=== PATIENT | female | born 1975 | race Caucasian/White ===

== ENCOUNTER → 2016-07-09 | Outpatient (CLI) | payer OTHER ==
[~2016-07-09] MED LIST: ACET-1256 PO; DOCU-94 PO; FERR18TA2 PO; MTR600X PO; OXYC1TAB3 PO; PRENTAB26 PO
== END | disposition home or self-care (01) ==
LOC: C.LABSPEC 14:36
PROVIDERS: ATTEND Obstetrics & Gynecology
DX: O09.513 Supervision of elderly primigravida, third trimester (principal)

== ENCOUNTER 2016-07-31 07:18 | Inpatient (IN) | payer OTHER ==
[~2016-07-31] VITALS: Ht 162.6 cm; Wt 79.5 kg
[2016-07-31] VITALS (14 sets, daily range): BP systolic 108–123; BP diastolic 69–78; PULSE 70–75; TEMP 36.5–37; O2SAT 95–98; Ht 162.6 cm; Wt 79.5 kg
[~2016-07-31 07:18] MED LIST changes: -MTR600X PO
[2016-07-31] MEDS ORDERED: LACTATED RINGER'S 1000ML 1,000 ML IV ONE (07:43)
[2016-07-31] MEDS ORDERED: CITRIC ACID/SODIUM CITRATE 15 ML UDC PO ONE (07:45)
[2016-07-31] MEDS ORDERED: CEFAZOLIN IV 2,000 MG in DEXTROSE 5% 50ML 50 ML IV SCH (08:00)
[2016-07-31] MEDS ORDERED: MoRPHine SULFATE PF 1 MG/ML 10 ML AMP/VIAL ONE (08:19)
[2016-07-31] MEDS ORDERED: ONDANSETRON INJ 2 MG/ML 2 ML VIAL IV PRN ×2 (08:30→08:45)
[2016-07-31] MEDS ORDERED: MEPERIDINE HCL 25 MG/ML CARP IV PRN ×2 (08:30→08:45)
[2016-07-31] MEDS ORDERED: KETOROLAC TROMETHAMINE 30 MG/ML VIAL IV. PRN ×2 (08:30→08:45)
[2016-07-31] MEDS ORDERED: MoRPHine SULFATE PF 1 MG/ML 10 ML AMP/VIAL EPI PRN (08:30)
[2016-07-31] MEDS ORDERED: NALOXONE HCL 0.4 MG/1 ML VIAL/CARP IV PRN (08:30)
[2016-07-31] MEDS ORDERED: NALOXONE HCL INJ 1 MG in SODIUM CHLORIDE 0.9% 1000ML 1,000 ML IV PRN ×4 (08:30)
[2016-07-31] MEDS ORDERED: SODIUM CHLORIDE 0.9% 1000ML 1,000 ML IV PRN (08:30)
[2016-07-31] MEDS ORDERED: LACTATED RINGER'S 1000ML 500 ML IV PRN (08:30)
[2016-07-31] MEDS ORDERED: NALBUPHINE HCL INJ 10 MG/ML AMP IV PRN (08:30)
[2016-07-31] MEDS ORDERED: DiphenhydrAMINE HCL 50 MG/ML VIAL IV PRN (08:30)
[2016-07-31] MEDS ORDERED: EpHEDrine SULFATE INJ 50 MG/ML AMP IV PRN ×2 (08:30→08:45)
[2016-07-31] MEDS ORDERED: PROMETHAZINE HCL INJ 25 MG in SODIUM CHLORIDE 0.9% 50ML 50 ML IV PRN (08:30)
[2016-07-31] MEDS ORDERED: NALOXONE HCL INJ 0.08 MG in SYRINGE 1.8 ML IV PRN (08:30)
[2016-07-31] MEDS ORDERED: NO NARCOTICS OR SEDATIVES SCH (08:30)
[2016-07-31 08:39] LABS: BASO % 0.2 %; BASO ABS # 0.02 K/uL (0-0.2); COMPLETE YES; EOS % 0.4 %; HEMATOCRIT 33.7 % (37-47); IG% 0.2 %; LYMPH % 17.7 %; LYMPH ABS # 1.83 K/uL (1.2-3.4); MEAN CELL VOLUME 87.8 fL (80-100); MEAN CORPUSCULAR HEMOGLOBIN 31.5 pg (25-34); MEAN CORPUSCULAR HGB CONC 35.9 g/dl (32-36); MEAN PLATELET VOLUME 12.2 fL (7.4-10.4); MONO % 7.2 %; NEUT % 74.3 %; PLATELET COUNT 192 K/uL (130-400); RED BLOOD COUNT 3.84 M/uL (4.2-5.4); WHITE BLOOD COUNT 10.32 K/uL (4.8-10.8)
[2016-07-31] MEDS ORDERED: ATROPINE SULFATE 0.1 MG/ML 5ML SYR IV PRN (08:45)
[2016-07-31] MEDS ORDERED: PHENYLEPHRINE 100MCG/ML 5ML SYR IV PRN (08:45)
--- NOTE | 2016-07-31 08:57 | HISTORY & PHYSICAL EXAMINATION ---
DATE OF ADMISSION: 07/31/2016 ADMIT DIAGNOSIS: 1. Intrauterine at 39 and 4/7 weeks. 2. Spontaneous rupture of membranes. 3. Desire for elective primary section. HISTORY OF PRESENT ILLNESS: The patient is a 41-year-old white female 2, para 0-0-1-0 with an EDC of 08/03/2016. She was scheduled for primary elective section this coming Friday. She noted a gush of fluid at approximately 6:30 this morning that soaked her underwear, it was clear. She notes some cramping, but no vaginal bleeding. Notes good movement. is complicated by advanced maternal age with a normal echo, occasional PACs noted on this. heart rate remained normal. She had a maternal T21 which was negative. A maternal serum protein which was negative. Her has essentially been uncomplicated. 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 She denies abnormal Pap smears or sexually transmitted diseases. ALLERGIES: VAPORIZING CHEST RUB OINTMENT. MEDICATIONS: vitamin, Albuterol inhaler as needed, Colace and iron. PAST MEDICAL HISTORY: Significant for migraines, asthma and chickenpox. She denies thyroid disease, heart disease, heart murmur, diabetes, kidney or liver problems. PAST SURGICAL HISTORY: Includes wisdom teeth removal and a broken fifth toe. SOCIAL HISTORY: The patient lives with her spouse. She denies tobacco, alcohol or drug use. PHYSICAL EXAMINATION: GENERAL: This is a well-developed, well-nourished white female in no acute distress, sitting comfortably in the bed. NECK: Supple. CHEST: Clear to auscultation bilaterally. CARDIOVASCULAR: Regular rate and rhythm without murmurs, gallops or rubs. BACK: Without costovertebral angle tenderness. ABDOMEN: Gravid, soft and nontender. EXTREMITIES: Benign. Sterile speculum exam reveals positive pooling, ferning Nitrazine. Cervix is visually closed and long. Tocodynamometer shows some mild intermittent contractions. The fetus is in the 130s with moderate variability, no accels or decels. LABORATORY DATA: Blood type A positive, antibody negative, Pap normal, rubella immune, RPR nonreactive, hepatitis B negative, HIV negative, chlamydia and gonorrhea negative, cystic fibrosis screening negative. Glucose tolerance test x2 normal. Group B strep negative. ASSESSMENT: Tia is a 41-year-old white female 2, para 0-0-1-0 with an intrauterine at 39 and 4/7 weeks who was scheduled for primary elective section on Friday, but now presents to labor and delivery with spontaneous rupture of membranes confirmed via sterile speculum exam. The patient continues to desire primary section. She has been counseled extensively in the office and this is her desire. The risks of the surgery were discussed with the patient including risks of anesthesia, bleeding requiring transfusion, infection, poor wound healing, damage to surrounding structures including bowel, bladder, vessels, nerves and ureters with need for further surgery, hospitalization or intervention. We discussed the other risks of surgery including heart attack, blood clot, stroke or . Consent was reviewed and signed and we will proceed with surgery. MAIA
[2016-07-31] MEDS ORDERED: METOCLOPRAMIDE HCL INJ 5 MG/ML 2 ML VIAL ONE (09:27)
[2016-07-31] MEDS ORDERED: PROPOFOL IV EMULSION 10 MG/ML 20 ML VIAL IV ONE (09:27)
[2016-07-31] MEDS ORDERED: OXYTOCIN INJ 10 UNITS/ML VIAL ONE (09:27)
[2016-07-31] MEDS ORDERED: ONDANSETRON INJ 2 MG/ML 2 ML VIAL ONE (09:27)
[2016-07-31] MEDS ORDERED: EpHEDrine SULFATE 50MG/5ML SYR ONE (09:28)
[2016-07-31] MEDS ORDERED: PHENYLEPHRINE 100MCG/ML 5ML SYR ONE (09:28)
[2016-07-31] MEDS ORDERED: LACTATED RINGER'S 1000ML 1,000 ML IV SCH (09:52)
[2016-07-31] MEDS ORDERED: HYDROCORTISONE ACETATE 25 MG SUPP PR PRN (10:00)
[2016-07-31] MEDS ORDERED: SUPERCREAM 0.870 % 15GM JAR EXT PRN (10:00)
[2016-07-31] MEDS ORDERED: LANOLIN OINT EXT PRN ×2 (10:00)
[2016-07-31] MEDS ORDERED: DIPHTHERIA/TETANUS/PERTUSSIS 0.5 ML SYR/VIAL IM. ONE (10:00)
--- NOTE | 2016-07-31 10:14 | [facility] Post Operative Brief Note ---
Immediate Operative Summary Operative Date Jul 31, 2016. Pre-Operative Diagnosis Term at 39 & 4 weeks with spontaneous rupture of membranes and desire for elective Caesarean section Post-Operative Diagnosis done with delivery of healthy male Procedure(s) Performed Primary Low Transverse Caesarean Section Surgeon Dr. Tatyana Isaac Cafe Assistant Surgeon(s) Dionne Barfield RN Estimated Blood Loss 500 Findings Delivered a viable male infant, APGARS 9,9. Weight 6#11ounces. Normal uterus, fallopian tubes and ovaries bilaterally Fluids (cc crystalloids) 3100 IVF Specimens a. placenta- hold b. cord blood specimen Drains Fatima catheter in place 350 UO Anesthesia Spinal w/duramorph Complication(s) None
--- NOTE | 2016-07-31 11:13 | Medical Student: [facility] ---
Immediate Operative Summary Operative Date Jul 31, 2016. Pre-Operative Diagnosis Term at 39 weeks 4 days with SROM and primary elective C/S Post-Operative Diagnosis Primary elective C/S w/ delivery of health male infant Procedure(s) Performed Primary low transverse C/S Surgeon Dr. Tatyana Isaac Home Teaching Gr[employer] 7 [employer] 8 Teacher Surgeon(s) Dionne Barfield RN Estimated Blood Loss 500 mL Findings Viable male infant, apgars 9/9, weight 6 lbs 11 oz Normal uterus, fallopian tubes, and ovaries bilaterally Fluids (cc crystalloids) 3100 mL IVF Specimens Placenta - hold Cord blood specimen Drains Fatima catheter in place - 350 UO Anesthesia spinal with morphine Complication(s) None Disposition L&D
--- NOTE | 2016-07-31 11:15 | Medical Student: [facility] ---
Med Student History & Physical Date of Service Jul 31, 2016. Chief Complaint R/O Rupture Of Membranes History of Present Illness Source: patient Patient is a 41 year old , 39 weeks 4 days GA, LINSEY 08/03/16 by LMP 10/28/15 , here for possible rupture of membranes. She experienced a gush of clear fluid around 0630 on 07/31/16 with some mild cramping. There is no bleeding and she continues to feel movements. There was pooling of fluid on sterile speculum exam and ferning was positive. She desires a primary elective C/S and was actually scheduled for a primary elective C/S this Friday08/02/16. Her course is significant for premature contractions at 32 weeks and advanced maternal age. A echo was performed on 03/26/16 for family history of a bicuspid aortic valve in the grandmother. echo showed PACs. All NSTs thus far have been reactive and fibronectin was negative on 06/07/16. The patient's past medical history is significant for hyperlipidemia and asthma. Her gynecologic history is insignificant. There is no history of abnormal pap smears or sexually transmitted diseases. Obstetrical history is significant for a spontaneous in 2015. Surgical history is significant for wisdom teeth extraction. Patient is blood type A +, rubella immune, VDRL/RPR nonreactive, negative HbsAg & HIV, negative G & C, negative GBS culture, negative Materni 21 and negative AFP. OB History Obstetrical history is significant for a spontaneous in 2015. 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 Periods last about 4-5 days. No excessive bleeding or cramping with periods. No history of abnormal pap smears or sexually transmitted disease. Past Medical History Past medical history is significant for hyperlipidemia and asthma. Patient has Ventolin at home, but has not used it in over a year. Past Surgical History Past surgical history is significant for wisdom teeth extraction. 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 ) Allergies Coded Allergies: Camphor (Unverified Adverse Reaction, Unknown, SHORTNESS OF BREATH, ) Eucalyptus Oil (Unverified Adverse Reaction, Unknown, SHORTNESS OF BREATH , 06/07/16) Menthol (Unverified Adverse Reaction, Unknown, SHORTNESS OF BREATH, ) Home Medications Acetaminophen (Tylenol), 500 MG PO DAILY PRN for Pain Docusate Sodium (Colace), 1 CAP PO DAILY Ferrous Fumarate (Iron), Unknown Dose PO 2XWK Multivit/Min/Iron/Fol Ac/Pren ( Vitamin), 1 TAB PO DAILY Oxycodone Immediate Rel Tab (Roxicodone Ir), 1-2 TAB PO Q4H PRN for Severe Pain Review of Systems Constitutional: No chills, No fever Eyes: No worsening of vision Respiratory: No cough, No shortness of breath Cardiovascular: No chest pain, No palpitations Abdomen: No constipation, No diarrhea, No nausea, No pain, No vomiting Genitourinary - Female: No dysuria Integumentary: No itch, No rash Physical Exam General Appearance: WD/WN, no apparent distress Respiratory/Chest: lungs clear, normal breath sounds Cardiovascular: regular rate, rhythm, no JVD, no murmur Abdomen / GI: non tender, soft, + pertinent finding (gravid ) Extremities: normal inspection Skin: normal color, warm/dry Sterile Speculum Exam: pooling of fluid Microscopy of vaginal fluid: positive for arborization/ferning Laboratory Results 07/31/16 08:30 Red Blood Count 3.84, Mean Corpuscular Volume 87.8, Mean Corpuscular Hemoglobin 31.5, Mean Corpuscular Hemoglobin Concent 35.9, Mean Platelet Volume 12.2, Neutrophils (%) (Auto) 74.3, Lymphocytes (%) (Auto) 17.7, Monocytes (%) (Auto) 7.2, Eosinophils (%) (Auto) 0.4, Basophils (%) (Auto) 0.2, Neutrophils # (Auto) 7.67, Lymphocytes # (Auto) 1.83, Monocytes # (Auto) 0.74, Eosinophils # (Auto) 0.04, Basophils # (Auto) 0.02 Test 07/31/16 08:30 White Blood Count 10.32 K/uL (4.8-10.8) Red Blood Count 3.84 M/uL (4.2-5.4) Hemoglobin 12.1 g/dL (12.0-16.0) Hematocrit 33.7 % (37-47) Mean Corpuscular Volume 87.8 fL (80-100) Mean Corpuscular Hemoglobin 31.5 pg (25-34) Mean Corpuscular Hemoglobin Concent 35.9 g/dl (32-36) Platelet Count 192 K/uL (130-400) Mean Platelet Volume 12.2 fL (7.4-10.4) Neutrophils (%) (Auto) 74.3 % Lymphocytes (%) (Auto) 17.7 % Monocytes (%) (Auto) 7.2 % Eosinophils (%) (Auto) 0.4 % Basophils (%) (Auto) 0.2 % Neutrophils # (Auto) 7.67 K/uL (1.4-6.5) Lymphocytes # (Auto) 1.83 K/uL (1.2-3.4) Monocytes # (Auto) 0.74 K/uL (0.11-0.59) Eosinophils # (Auto) 0.04 K/uL (0-0.5) Basophils # (Auto) 0.02 K/uL (0-0.2) RDW Standard Deviation 46.2 fL (36.4-46.3) RDW Coefficient of Variation 14.3 % (11.5-14.5) Immature Granulocyte % (Auto) 0.2 % Immature Granulocyte # (Auto) 0.02 K/uL (0.00-0.02) Assessment and Plan Patient is a 41 year old, , 39 weeks 4 days GA, LINSEY 08/03/16 by LMP , here for possible rupture of membranes. Pooling on sterile speculum exam and positive ferning are suggestive of amniotic fluid and thus indicate rupture of membranes. Plan is to proceed with primary elective C/S.
--- NOTE | 2016-07-31 11:16 | OPERATIVE REPORT ---
DATE OF OPERATION: 07/31/2016 PREOPERATIVE DIAGNOSES: 1. Term intrauterine . 2. Spontaneous rupture of membranes. 3. Desires elective section. POSTOPERATIVE DIAGNOSIS: Same. PROCEDURE: 1. Primary low transverse section. SURGEON: Dr. Tatyana Isaac. EXPERIMENTAL FLIGHT TEST MECHANIC: Jewels, PGY-1. ANESTHESIA: Spinal with Duramorph. IV FLUIDS: 3100 mL. ESTIMATED BLOOD LOSS: 500 mL. URINE OUTPUT: 350 mL. FINDINGS: Viable male , Apgars 9 and 9. Normal uterus, tubes and ovaries bilaterally. INDICATIONS: A 41-year-old 1, para 0 at 39+ weeks who came in to labor and delivery with confirmed spontaneous rupture of membranes. The patient declined attempted vaginal delivery. She desired . She is aware of risks, alternatives and complications and the consent form was signed. PROCEDURE: The patient was taken to the operating room and identified. After adequate spinal anesthesia was obtained, she was placed on the operating table in the supine position with a leftward tilt and prepped and draped in the usual sterile fashion. The knife was used to create a Pfannenstiel skin incision that was carried down to underlying layer of fascia. The fascia was nicked in the midline and this opening was extended laterally using Lo scissors. Uli clamps were placed in the superior and inferior aspects of the fascial incision tenting it upwards and the underlying rectus muscles were dissected off the overlying fascia both sharply and bluntly using Lo scissors. The rectus muscles were bluntly in the midline. The peritoneal cavity was bluntly entered into. This opening was stretched. The bladder blade was placed. The vesicouterine peritoneum was grasped with a Theresa clamp and elevated. It was opened up into sharply and extended bluntly and the bladder flap was created digitally. The bladder blade was replaced. Knife was used to create a hysterotomy that was then stretched. The operators hand was placed through the hysterotomy and the head was elevated. The bladder blade was removed. With fundal pressure, the head was flexed and delivered. The shoulders and body were delivered with ease. The was vigorous and crying at . Per the patient's desire, the cord was clamped after it stopped pulsating. This is within less than 1 minute. The 's cord was doubly clamped and cut and the was handed off to the awaiting pediatricians. Cord blood was obtained. The placenta was manually expressed. The uterus was exteriorized and cleared of all clots and debris. The hysterotomy was closed in a running interlocking fashion using 0 Vicryl followed by a second imbricating layer of 0 Vicryl. Two bleeding site in the midline were stitched with interrupted [id number] sutures of 2-0 Vicryl for excellent hemostasis. The pelvis was irrigated. The uterus was returned to the abdomen. The gutters were cleared of all clots and debris. The hysterotomy was reinspected and noted to be hemostatic. The fascia was closed in a running fashion using 0 Vicryl. Subcutaneous fat was reapproximated using 2-0 chromic. The skin was then closed in a subcuticular fashion using 4-0 Vicryl. All sponge, lap and counts were correct x2. The patient was returned to the recovery room in stable condition. I attest to the content of the Intraoperative Record and any orders documented therein. Any exceptions are noted below. MAIA
--- NOTE | 2016-07-31 12:41 | Anesthesiology Progress Note ---
Anesthesia Post Op Note Date & Time Jul 31, 2016 at 12:41 Notes Mental Status: alert / awake / arousable, participated in evaluation Pt Amnestic to Procedure: Yes Nausea / Vomiting: adequately controlled Pain: adequately controlled Airway Patency, RR, SpO2: stable & adequate BP & HR: stable & adequate Hydration State: stable & adequate Anesthetic Complications: no major complications apparent
[2016-07-31] MEDS: OXYTOCIN INJ 20 UNITS in LACTATED RINGER'S 1000ML 1,000 ML IV SCH ×2 (13:44→19:37)
[2016-07-31] MEDS: SIMETHICONE 80 MG CHEW PO SCH ×2 (17:00→19:36)
[2016-07-31] MEDS: DOCUSATE SODIUM 100 MG CAP PO SCH (19:36)
[2016-08-01] VITALS: O2SAT 95
[2016-08-01 01:00] VITALS: O2SAT 96
[2016-08-01 02:00] VITALS: O2SAT 96
[2016-08-01] MEDS ORDERED: DC INTRASPINAL MORPHINE ONE (02:00)
[2016-08-01] MEDS ORDERED: ZOLPIDEM TARTRATE 5 MG TAB PO PRN (02:01)
[2016-08-01] MEDS ORDERED: OXYCODONE/ACETAMINOPHEN 5-325 TAB PO PRN (02:01)
[2016-08-01] MEDS ORDERED: DiphenhydrAMINE HCL 50 MG/ML VIAL IV PRN (02:01)
[2016-08-01] MEDS ORDERED: KETOROLAC TROMETHAMINE 30 MG/ML VIAL IV. PRN (02:01)
[2016-08-01] MEDS ORDERED: ONDANSETRON INJ 2 MG/ML 2 ML VIAL IV PRN (02:01)
[2016-08-01 03:55] VITALS: BP 108/71; PULSE 66; TEMP 36.9
[2016-08-01 06:58] LABS: BASO % 0.2 %; BASO ABS # 0.02 K/uL (0-0.2); COMPLETE YES; EOS % 0.2 %; HEMATOCRIT 28.9 % (37-47); IG% 0.2 %; LYMPH % 11.9 %; LYMPH ABS # 1.44 K/uL (1.2-3.4); MEAN CELL VOLUME 87.6 fL (80-100); MEAN CORPUSCULAR HEMOGLOBIN 31.2 pg (25-34); MEAN CORPUSCULAR HGB CONC 35.6 g/dl (32-36); MEAN PLATELET VOLUME 10.9 fL (7.4-10.4); MONO % 6.5 %; PLATELET COUNT 154 K/uL (130-400); WHITE BLOOD COUNT 12.15 K/uL (4.8-10.8)
--- NOTE | 2016-08-01 07:03 | Progress Note ---
Subjective Aug 01, 2016. Subjective conversation w/ patient, physical exam Ambulation: ambulating normally Passing Gas: Yes Diet Tolerance: Clear Liquids Lochia: Small Feeding Type: Breast Feeding Pain: denies pain issues Comment: madrigal just out, awaiting void. Objective Vital Signs Date Time Temp Pulse Resp B/P Pulse Ox O2 Delivery O2 Flow Rate FiO2 08/01/16 03:55 36.9 66 20 108/71 Room Air 08/01/16 02:00 20 96 08/01/16 01:00 18 96 08/01/16 00:00 18 95 07/31/16 23:55 37.0 75 18 108/69 95 Room Air 07/31/16 23:55 95 Room Air 07/31/16 23:00 18 95 07/31/16 22:25 18 95 07/31/16 21:25 16 97 07/31/16 20:25 18 97 07/31/16 19:35 36.7 71 18 123/78 95 Room Air 07/31/16 19:25 18 97 07/31/16 18:25 20 96 07/31/16 17:25 18 96 07/31/16 16:25 18 97 07/31/16 15:25 97 Room Air 07/31/16 15:25 36.5 71 18 123/74 97 Room Air 07/31/16 15:25 18 97 07/31/16 14:20 16 96 07/31/16 14:17 36.5 70 16 115/70 96 Room Air 07/31/16 13:20 18 97 07/31/16 13:20 98 Room Air 07/31/16 13:20 36.7 73 18 120/72 97 Room Air Physical Exam General Appearance: WELL-APPEARING, WD/WN, NO APPARENT DISTRESS Respiratory/Chest: lungs clear Cardiovascular: regular rate, rhythm Abdomen: non tender, soft Fundus: Firm, Relation to Umbilicus (1 down) Incision Description: Clean, Dry & Intact Extremities: non-tender, no pedal edema Laboratory Results Last 24 Hours Test 07/31/16 08:30 08/01/16 06:42 White Blood Count 10.32 K/uL 12.15 K/uL Red Blood Count 3.84 M/uL 3.30 M/uL Hemoglobin 12.1 g/dL 10.3 g/dL Hematocrit 33.7 % 28.9 % Mean Corpuscular Volume 87.8 fL 87.6 fL Mean Corpuscular Hemoglobin 31.5 pg 31.2 pg Mean Corpuscular Hemoglobin Concent 35.9 g/dl 35.6 g/dl Platelet Count 192 K/uL 154 K/uL Mean Platelet Volume 12.2 fL 10.9 fL Neutrophils (%) (Auto) 74.3 % 81.0 % Lymphocytes (%) (Auto) 17.7 % 11.9 % Monocytes (%) (Auto) 7.2 % 6.5 % Eosinophils (%) (Auto) 0.4 % 0.2 % Basophils (%) (Auto) 0.2 % 0.2 % Neutrophils # (Auto) 7.67 K/uL 9.84 K/uL Lymphocytes # (Auto) 1.83 K/uL 1.44 K/uL Monocytes # (Auto) 0.74 K/uL 0.79 K/uL Eosinophils # (Auto) 0.04 K/uL 0.03 K/uL Basophils # (Auto) 0.02 K/uL 0.02 K/uL RDW Standard Deviation 46.2 fL 45.9 fL RDW Coefficient of Variation 14.3 % 14.4 % Immature Granulocyte % (Auto) 0.2 % 0.2 % Immature Granulocyte # (Auto) 0.02 K/uL 0.03 K/uL Assessment and Plan Problem List Medical Problems: (1) Left flank pain Status: Acute (2) Status: Acute Post-Op Day#: 1 Continue Routine Care: stable, routine care. adv diet, await spont void. ambulate in halls. h/h noted. plan recheck in am. breast feeding encouraged.po pain meds.
--- NOTE | 2016-08-01 07:07 | Medical Student: [facility] ---
Med Student [employer] SYSTEM[employer] ENGINE[employer] Progress Nt Date of Service Aug 01, 2016. Subjective conversation w/ patient Ambulation: limited ambulation (bedrest ) Voiding: no voiding problems Passing Gas: Yes Diet Tolerance: Clear Liquids Lochia: Moderate (rubra) Feeding Type: Breast Feeding Pain: over incision Review of Systems Constitutional: No chills, No fever Respiratory: No cough, No shortness of breath Cardiac: No chest pain, No palpitations Abdomen: + constipation, + pain, No diarrhea, No nausea, No vomiting Female : No dysuria Objective Vital Signs Date Time Temp Pulse Resp B/P Pulse Ox O2 Delivery O2 Flow Rate FiO2 08/01/16 03:55 36.9 66 20 108/71 Room Air 08/01/16 02:00 20 96 08/01/16 01:00 18 96 08/01/16 00:00 18 95 07/31/16 23:55 37.0 75 18 108/69 95 Room Air 07/31/16 23:55 95 Room Air 07/31/16 23:00 18 95 07/31/16 22:25 18 95 07/31/16 21:25 16 97 07/31/16 20:25 18 97 07/31/16 19:35 36.7 71 18 123/78 95 Room Air 07/31/16 19:25 18 97 07/31/16 18:25 20 96 07/31/16 17:25 18 96 07/31/16 16:25 18 97 07/31/16 15:25 97 Room Air 07/31/16 15:25 36.5 71 18 123/74 97 Room Air 07/31/16 15:25 18 97 07/31/16 14:20 16 96 07/31/16 14:17 36.5 70 16 115/70 96 Room Air 07/31/16 13:20 18 97 07/31/16 13:20 98 Room Air 07/31/16 13:20 36.7 73 18 120/72 97 Room Air Physical Exam General Appearance: WELL-APPEARING, NO APPARENT DISTRESS Respiratory/Chest: lungs clear, normal breath sounds Cardiovascular: regular rate, rhythm, no gallop, no murmur Abdomen: normal bowel sounds Fundus: Firm, Tender, Relation to Umbilicus (at umbilicus ) Incision Description: Clean, Dry & Intact Extremities: non-tender, no pedal edema, + pertinent finding (SCDs in place bilterally ) Laboratory Results Last 24 Hours Test 07/31/16 08:30 08/01/16 06:00 White Blood Count 10.32 K/uL Red Blood Count 3.84 M/uL Hemoglobin 12.1 g/dL Hematocrit 33.7 % Mean Corpuscular Volume 87.8 fL Mean Corpuscular Hemoglobin 31.5 pg Mean Corpuscular Hemoglobin Concent 35.9 g/dl Platelet Count 192 K/uL Mean Platelet Volume 12.2 fL Neutrophils (%) (Auto) 74.3 % Lymphocytes (%) (Auto) 17.7 % Monocytes (%) (Auto) 7.2 % Eosinophils (%) (Auto) 0.4 % Basophils (%) (Auto) 0.2 % Neutrophils # (Auto) 7.67 K/uL Lymphocytes # (Auto) 1.83 K/uL Monocytes # (Auto) 0.74 K/uL Eosinophils # (Auto) 0.04 K/uL Basophils # (Auto) 0.02 K/uL RDW Standard Deviation 46.2 fL RDW Coefficient of Variation 14.3 % Immature Granulocyte % (Auto) 0.2 % Immature Granulocyte # (Auto) 0.02 K/uL Medications Medications Administered Medications (Trade) Dose Ordered Sig/Alexia Route Start Time Stop Time Status Last Admin Dose Admin Lactated Ringer's (Lr 1000ml) 1,000 ml @ 1,000 mls/hr Q1H ONCE IV 07/31/16 07:43 07/31/16 08:42 DC 07/31/16 08:14 1,000 MLS/HR Citric Acid/ Sodium Citrate 30 ml 30 ml 0745 ONCE PO 07/31/16 07:45 07/31/16 07:50 DC 07/31/16 08:42 30 ML Cefazolin Sodium/ Dextrose (Ancef Iv/D5 50ml) 60 ml @ 100 mls/hr PREOP IV 07/31/16 08:00 07/31/16 08:35 DC 07/31/16 08:44 100 MLS/HR Ketorolac Tromethamine (Toradol Inj) 30 mg Q6H PRN IV. 07/31/16 08:30 08/01/16 02:00 DC 08/01/16 01:36 30 MG Miscellaneous Information 1 ea 1 ea 0200 ONCE N/A 08/01/16 02:00 08/01/16 02:01 DC 08/01/16 02:00 1 EA Oxytocin/Lactated Ringer's (Pitocin Inj/Lr 1000ml) 1,002 ml @ 125 mls/hr Q8H1M IV 07/31/16 09:52 08/30/16 09:51 07/31/16 19:37 125 MLS/HR Docusate Sodium (coLACE CAP) 100 mg BID PO 07/31/16 20:00 08/30/16 19:59 07/31/16 19:36 100 MG Simethicone (Mylicon Chew Tab) 80 mg QID PO 07/31/16 13:00 08/30/16 12:59 07/31/16 19:36 80 MG Assessment and Plan Post- Day Number: 1 Continue Routine Care: The patient is a 41 year old , PP day 1, s/p primary low transverse C/S with no complications. Plan is to continue routine care today. -vitals stable and WNL -blood type A +, rubella immune -doing well clinically -encourage ambulation and liquids -start PO diet -pain well controlled with IV Toradol 30 mg last night -continue routine care
[2016-08-01 08:10] VITALS: BP 104/58; PULSE 62; TEMP 36.8
[2016-08-01] MEDS: SIMETHICONE 80 MG CHEW PO SCH ×4 (08:17→20:27)
[2016-08-01] MEDS: DOCUSATE SODIUM 100 MG CAP PO SCH ×2 (08:17→20:27)
[2016-08-01] MEDS: IBUPROFEN 600 MG TAB PO PRN ×3 (08:18→17:24)
[2016-08-01] MEDS: OXYCODONE/ACETAMINOPHEN 5-325 TAB PO PRN ×3 (08:19→17:23)
[2016-08-01 16:10] VITALS: BP 144/84; PULSE 18; PULSE 53; TEMP 36.6; O2SAT 96
[2016-08-01] MEDS ORDERED: NURSING VERBAL MED ORDER ONE ×2 (18:00)
[2016-08-02 00:30] VITALS: BP 155/83; PULSE 64; TEMP 36.6
[2016-08-02] MEDS: IBUPROFEN 600 MG TAB PO PRN ×4 (00:39→20:11)
[2016-08-02 02:00] VITALS: BP 159/75; PULSE 64
[2016-08-02 06:25] VITALS: BP 136/78; PULSE 68; TEMP 36.7
[2016-08-02 06:45] LABS: HEMATOCRIT 31.2 % (37-47)
--- NOTE | 2016-08-02 07:07 | Progress Note ---
Subjective Aug 02, 2016. Subjective conversation w/ patient, physical exam Ambulation: ambulating normally Voiding: no voiding problems Passing Gas: Yes Diet Tolerance: Regular Diet Lochia: Small Feeding Type: Breast Feeding Pain: 08/23 Review of Systems Constitutional: No chills, No fever Respiratory: No cough, No shortness of breath Cardiac: No chest pain, No palpitations Abdomen: + pain (08/23), No constipation, No diarrhea, No nausea, No vomiting Objective Vital Signs Date Time Temp Pulse Resp B/P Pulse Ox O2 Delivery O2 Flow Rate FiO2 08/02/16 06:25 36.7 68 18 136/78 Room Air 08/02/16 02:00 64 18 159/75 08/02/16 00:30 36.6 64 18 155/83 Room Air 08/02/16 00:30 Room Air 08/01/16 16:10 96 Room Air 08/01/16 16:10 36.6 53 18 144/84 96 Room Air 18 08/01/16 08:10 36.8 62 20 104/58 Room Air 08/01/16 08:10 Room Air Physical Exam General Appearance: WELL-APPEARING Respiratory/Chest: lungs clear, normal breath sounds Cardiovascular: regular rate, rhythm, no murmur Abdomen: normal bowel sounds, soft, + tenderness (mild tenderness around incision) Fundus: Firm, Non-Tender, Relation to Umbilicus (1 cm below umbilicus) Incision Description: Clean, Dry & Intact Extremities: normal range of motion, non-tender Laboratory Results Last 24 Hours Test 08/02/16 06:15 Hemoglobin 10.6 g/dL Hematocrit 31.2 % Assessment and Plan Problem List Medical Problems: (1) Left flank pain Status: Acute (2) Status: Acute Post- Day#: 2 Continue Routine Care: 41 year old female post day 2 after elective c section Analgesia PRN, Escalate Diet, Encourage ambulation CONTINUE POST C SECTION CARE Resident Physician Supervision Note: I interviewed and examined the patient. Discussed with Dr. Allred and agree with findings and plan as documented in the note. Any exceptions or clarifications are listed here: [None] Documented By: Jos Pérez
--- NOTE | 2016-08-02 07:09 | Medical Student: [facility] ---
Med Student [employer] Progress Nt Date of Service Aug 02, 2016. Subjective conversation w/ patient Ambulation: ambulating normally Voiding: no voiding problems Passing Gas: Yes Diet Tolerance: Regular Diet Lochia: Small Feeding Type: Breast Feeding Pain: 3/10 back and abdominal pain Review of Systems Constitutional: No chills, No fever Respiratory: No cough, No shortness of breath Cardiac: No chest pain, No palpitations Abdomen: + constipation, + pain (3/10 ), No diarrhea, No nausea, No vomiting Female : No dysuria Objective Vital Signs Date Time Temp Pulse Resp B/P Pulse Ox O2 Delivery O2 Flow Rate FiO2 08/02/16 06:25 36.7 68 18 136/78 Room Air 08/02/16 02:00 64 18 159/75 08/02/16 00:30 36.6 64 18 155/83 Room Air 08/02/16 00:30 Room Air 08/01/16 16:10 96 Room Air 08/01/16 16:10 36.6 53 18 144/84 96 Room Air 18 08/01/16 08:10 36.8 62 20 104/58 Room Air 08/01/16 08:10 Room Air Physical Exam General Appearance: WELL-APPEARING, NO APPARENT DISTRESS Respiratory/Chest: lungs clear, normal breath sounds Cardiovascular: regular rate, rhythm, no gallop, no murmur Abdomen: normal bowel sounds, non tender, soft Fundus: Firm, Non-Tender, Relation to Umbilicus (1 cm below ) Incision Description: Clean, Dry & Intact Extremities: normal inspection, no calf tenderness, + pedal edema (1 + pedal edema bilaterally ) Laboratory Results Last 24 Hours Test 08/02/16 06:15 Hemoglobin 10.6 g/dL Hematocrit 31.2 % Medications Medications Administered Medications (Trade) Dose Ordered Sig/Alexia Route Start Time Stop Time Status Last Admin Dose Admin Lactated Ringer's (Lr 1000ml) 1,000 ml @ 1,000 mls/hr Q1H ONCE IV 07/31/16 07:43 07/31/16 08:42 DC 07/31/16 08:14 1,000 MLS/HR Citric Acid/ Sodium Citrate 30 ml 30 ml 0745 ONCE PO 07/31/16 07:45 07/31/16 07:50 DC 07/31/16 08:42 30 ML Cefazolin Sodium/ Dextrose (Ancef Iv/D5 50ml) 60 ml @ 100 mls/hr PREOP IV 07/31/16 08:00 07/31/16 08:35 DC 07/31/16 08:44 100 MLS/HR Ketorolac Tromethamine (Toradol Inj) 30 mg Q6H PRN IV. 07/31/16 08:30 08/01/16 02:00 DC 08/01/16 01:36 30 MG Miscellaneous Information 1 ea 1 ea 0200 ONCE N/A 08/01/16 02:00 08/01/16 02:01 DC 08/01/16 02:00 1 EA Oxytocin/Lactated Ringer's (Pitocin Inj/Lr 1000ml) 1,002 ml @ 125 mls/hr Q8H1M IV 07/31/16 09:52 08/30/16 09:51 07/31/16 19:37 125 MLS/HR Oxycodone/ Acetaminophen (Percocet 5-325mg Tab) 1 tab Q4H PRN PO 08/01/16 02:01 08/15/16 02:00 08/01/16 17:23 1 TAB Oxycodone/ Acetaminophen (Percocet 5-325mg Tab) 2 tab Q4H PRN PO 08/01/16 02:01 08/15/16 02:00 08/02/16 00:40 2 TAB Ibuprofen (Motrin Tab) 600 mg Q4H PRN PO 07/31/16 10:00 08/30/16 09:59 08/02/16 00:39 600 MG Docusate Sodium (coLACE CAP) 100 mg BID PO 07/31/16 20:00 08/30/16 19:59 08/01/16 20:27 100 MG Simethicone (Mylicon Chew Tab) 80 mg QID PO 07/31/16 13:00 08/30/16 12:59 08/01/16 20:27 80 MG Assessment and Plan Post- Day Number: 2 Continue Routine Care: Patient is a 41 year old , PP day 2, s/p primary low transverse C/S with no complications. Plan is to continue routine care. -vitals stable and WNL -blood type A +, rubella immune -doing well clinically -encourage ambulation & liquids -tolerating PO diet well -pain well controlled with Percocet 1-2 tabs q4hr PRN and PO Ibuprofen 600 mg q4hr PRN -continue routine care
[2016-08-02] MEDS: DOCUSATE SODIUM 100 MG CAP PO SCH ×2 (08:24→20:10)
[2016-08-02] MEDS: SIMETHICONE 80 MG CHEW PO SCH ×4 (08:24→20:10)
[2016-08-02 09:10] VITALS: BP 129/75; PULSE 54; TEMP 36.6
[2016-08-02] MEDS: OXYCODONE/ACETAMINOPHEN 5-325 TAB PO PRN ×2 (12:11→20:11)
[2016-08-02 17:10] VITALS: BP 145/90; PULSE 62; TEMP 36.4
[2016-08-03 00:15] VITALS: BP 143/89; PULSE 69; TEMP 36.6; O2SAT 98
[2016-08-03] MEDS: IBUPROFEN 600 MG TAB PO PRN ×3 (00:29→10:53)
[2016-08-03] MEDS: OXYCODONE/ACETAMINOPHEN 5-325 TAB PO PRN ×3 (00:30→10:53)
--- NOTE | 2016-08-03 07:44 | Progress Note ---
Subjective Aug 03, 2016. Subjective conversation w/ patient Ambulation: ambulating normally Voiding: no voiding problems Passing Gas: Yes Diet Tolerance: Regular Diet Lochia: Small Feeding Type: Breast Feeding (also supplementing w/ bottle feeding) Review of Systems Constitutional: No chills, No fever Respiratory: No cough, No shortness of breath Cardiac: No chest pain, No palpitations Abdomen: + pain (over incision site), No nausea, No vomiting Objective Vital Signs Date Time Temp Pulse Resp B/P Pulse Ox O2 Delivery O2 Flow Rate FiO2 08/03/16 00:15 98 Room Air 08/03/16 00:15 36.6 69 20 143/89 98 Room Air 08/02/16 17:10 36.4 62 20 145/90 08/02/16 09:10 36.6 54 16 129/75 Physical Exam General Appearance: WELL-APPEARING Respiratory/Chest: chest non-tender, lungs clear Cardiovascular: regular rate, rhythm, no murmur Abdomen: normal bowel sounds, + tenderness (mild tenderness around incision site) Fundus: Firm, Non-Tender, Relation to Umbilicus (1 cm below umbilicus) Extremities: normal range of motion, non-tender, no pedal edema Assessment and Plan Problem List Medical Problems: (1) Left flank pain Status: Acute (2) Status: Acute Post- Day#: 3 Continue Routine Care: 41 F s/p C section Day 3 - vital signs reviewed and within normal limits - Hgb reviewed 10.6 yesterday - Blood type: A+, GBS-, Rubella immune - Patient doing well clinically - Encourage ambulation, monitor and control pain with motrin prn and percocet prn, resume regular diet, monitor lochia - Encourage breast feeding - Pt counselled on discharge instructions - PATIENT DISCHARGE HOME TODAY
[2016-08-03] MEDS ORDERED: MTR600X PO (07:45)
[2016-08-03] MEDS ORDERED: OXYC1TAB3 PO (07:45)
--- NOTE | 2016-08-03 07:47 | Discharge Instructions ---
Discharge Instructions Admission Reason for Admission: R/O Rupture Of Membranes Discharge Discharge Diagnosis / Problem: recovery after Discharge Goals Goal(s): Routine recovery after Activity Recommendations Activity Limitations: per Instructions/Follow-up section . Instructions / Follow-Up Instructions / Follow-Up ACTIVITY RECOMMENDATIONS: * Gradual return to full activity over the next 2-3 weeks. * No lifting - nothing heavier than baby over the next 2-3 weeks. * Do not engage in vigorous exercise, sexual activity or sports until cleared by your physician. * Do not drive or operate any motorized equipment until cleared by your physician. * You may shower/bathe daily. MEDICATIONS: For discomfort or pain, you may use Acetaminophen (Tylenol), Ibuprofen (Advil), or Naproxen (Aleve) following the package directions. For constipation you may use Colace following the package directions. BREAST CARE: If you are not breast feeding: * Wear a supportive bra 24 hours a day for one to two weeks. * Avoid stimulating your breasts and nipples as much as possible during the first few weeks after delivery. * When taking a shower, have the warm water hit your back, not breasts. * When your breasts feel full, apply ice packs. Usually three to four times a day helps ease the discomfort. * Take a mild pain medication (Tylenol / Motrin) when you are uncomfortable. If breast feeding: * Use breast milk to lubricate nipples. Lansinoh cream may be used for sore nipples. You do not need to remove cream prior to breast feeding. If using a different brand of cream, check the label for directions regarding removal of cream prior to nursing. * Wear a supportive bra. * If having problems with breasts or breast feeding, call a transportation consultant or your health care provider. SPECIAL CARE INSTRUCTIONS: When you are discharged from the hospital, it is important for you to follow the instructions listed below: * During the first week at home, you should be able to care for yourself and your baby. In addition, the usual light household activities are encouraged. * Limit your activities to the way you feel. Do not try to clean the house or move furniture. Be sensible. * If you actively engage in sports and have done so up until the time of your delivery, you may resume these activities as soon as you feel able. This may take up to one month or even longer. Use good judgment. * Continue to take your vitamins for at least six weeks after the of your baby. * Your diet need not be limited unless you were on a special diet before your delivery. Breast-feeding mothers need around 2500 calories per day and at least 64-80 ounces of fluid per day (8 to 10 glasses). * You should eat foods from the four major food groups. Crash diets or fad diets are to be avoided. Eating lean meats, fresh fruits and vegetables, low-fat dairy products, high fiber foods and a regular exercise program, will help you get back to your pre- weight without putting your health at risk. * Constipation is sometimes a problem after delivery. Take a mild laxative as needed. If breast feeding, Milk of Magnesia is acceptable to use. You may use a suppository or Fleets enema. * A daily shower or tub bath is suggested. Wash incision daily with warm soapy water and pat dry. It doesn't need to be covered unless drainage is present. * A bloody vaginal discharge will usually continue until around four weeks . A small amount of bleeding may continue for as long as six weeks. Vaginal discharge changes from the bright red bleeding after delivery to pink then brownish and finally yellowish-pink before becoming white and disappearing. * Bleeding may increase with activity. Your first period may come in 4-8 weeks. If you are breast feeding, your period may be delayed even longer. * [place] (sex) can begin whenever both you and your partner feel comfortable and do not have any form of genital infection. It is recommended that you wait at least six weeks for internal and external healing to occur. If you have questions, please talk to your health care practitioner. A condom should be used to prevent infection and . * Foreplay, gentle intercourse and lubrication is very important the first several times to prevent pain. A water-based lubricant such as K-Y jelly or Astroglide may be used. * If you have RH negative blood and your baby is RH positive, you will receive RHOGAM by injection prior to discharge. The nurse will give you a card to keep with you that has the date and place that you received RHOGAM after delivery. * During your care, you had a Rubella screen done to check for the presence of rubella antibodies in your blood. If your test was negative, you will receive a Rubella vaccine prior to discharge. This vaccine may cause a fever, soreness at the injection site and flu-like symptoms. If these symptoms persist, notify your health care practitioner. is not advised for one month after a Rubella vaccine. * Verbalizes understanding of car seat law as reviewed with patient nursing. * Car Seat hand-out given and reviewed with patient by nursing. * Shaken baby information reviewed with patient by nursing. Call you doctor if: * Heavy bleeding (saturating several pads an hour) or passing clots the size of your fist. * A fever >101 degrees F (38.3 degrees C) on two occasions four hours apart and /or chills. * Unusual pain in the pelvic or vaginal areas. * Call the doctor for any increased redness, drainage or swelling around the incision and any pain unrelieved by prescribed pain medication. * "Baby Blues" lasting longer than two weeks. If you have any questions or concerns, call your health care practitioner at . FOLLOW UP VISIT: * Please call the office at to schedule a 6 week examination. It is important you keep this appointment. It is important for you to make arrangements for either yearly or twice yearly check-ups thereafter. Current Hospital Diet Patient's current hospital diet: Regular OB Diet Discharge Diet Recommended Diet: Regular OB Diet Procedures Procedures Performed: Primary Low Transverse Caesarean Section Pending Studies Studies pending at discharge: no Medical Emergencies . Who to Call and When: Medical Emergencies: If at any time you feel your situation is an emergency, please call [phone] immediately. . Non-Emergent Contact Non-Emergency issues call your: [employer] . . "Provider Documentation" section prepared by Anabell Lopez. VTE Core Measure Inpt VTE Proph given/why not?: Treatment not indicated
[2016-08-03] MEDS: SIMETHICONE 80 MG CHEW PO SCH (07:56)
[2016-08-03] MEDS: DOCUSATE SODIUM 100 MG CAP PO SCH (07:56)
[2016-08-03 08:00] VITALS: BP 138/79; PULSE 55; TEMP 36.5
[2016-08-03 11:34] VITALS: BP_DIAS 79; PULSE 55; TEMP 36.5
--- NOTE | 2016-08-09 09:57 | DISCHARGE SUMMARY ---
ADMISSION DIAGNOSES: 1. Term intrauterine . 2. Spontaneous rupture of membranes. 3. Desires elective section. DISCHARGE DIAGNOSES: Same. PROCEDURE: Primary low transverse section. BRIEF HISTORY AND HOSPITAL COURSE: A 41-year-old 1, para 0 at 39+ weeks who came in labor and delivery with confirmed spontaneous rupture of membranes. The patient declined attempted vaginal delivery. She desires electively. She is aware of the risks, concerns and complications and consent form was signed. She underwent the above stated procedure without incident. Her estimated blood loss was 500 mL. Her postop hemoglobin was 10.6. Postop recovery was unremarkable. On her postop day #3, she was tolerating a regular diet, voiding spontaneously without difficulty and ambulating without difficulty and was stable for her discharge to home. She was to follow up in 6 weeks for checkup and instructions were reviewed. She was also given routine pain medication prescription.
== END 2016-08-03 12:10 | disposition home or self-care (01) | DRG 766 ==
LOC: C.OPB 07:18 → C.LD 07:18 → C.OPB 07:46 → C.OBG 13:41
PROVIDERS: ADMIT Obstetrics & Gynecology; ATTEND Obstetrics & Gynecology
PROC: 10D00Z1 Extraction of Products of Conception, Low, Open Approach (ICD-10-PCS; principal; 2016-07-31 08:11)
DX: O82 Encounter for cesarean delivery without indication (principal); O42.92 Full-term premature rupture of membranes, unspecified as to length of time between rupture and onset of labor; O99.52 Diseases of the respiratory system complicating childbirth; J45.909 Unspecified asthma, uncomplicated; Z37.0 Single live birth; Z3A.39 39 weeks gestation of pregnancy; Z79.899 Other long term (current) drug therapy

== ENCOUNTER → 2016-09-19 | Outpatient (CLI) | payer OTHER ==
[~2016-09-19] MED LIST changes: -ACET-1256 PO; +MTR600X PO
--- NOTE | 2016-09-19 15:07 | MAMMOGRAPHY REPORT ---
BILATERAL DIGITAL DIAGNOSTIC MAMMOGRAM TOMOSYNTHESIS WITH CAD AND TARGETED BILATERAL ULTRASOUND: 09/19 CLINICAL HISTORY: The patient stopped nursing approximately 3 weeks ago. Since then she has had debbie ateral breast lumps. The left superior breast lump has been progressively increasing and is now ken te painful. She has tried warm compresses/pumping with no relief. She was recently placed on antib iotics. TECHNIQUE: Breast tomosynthesis in addition to standard 2D mammography was performed. Current study was also evaluated with a Computer Aided Detection (CAD) system. Bilateral CC and MLO 2-D and rosalie synthesis images were obtained. COMPARISON: No prior exams were available for comparison. BREAST COMPOSITION: The tissue of both breasts is heterogeneously dense, which may obscure small ma sses. FINDINGS: [place] markers shana the site of palpable lumps in the right lower outer quadrant and le ft upper outer quadrant and left 12:00 breast. There is diffusely increased density bilaterally, li dwain due to lactational changes, which reduces the sensitivity of the exam. There is a possible rou nded obscured mass seen within the left 12:00 breast posteriorly edging approximately 3 cm. The rem ainder of both breasts demonstrate no clear masses, calcifications, or areas of architectural distor tion, within the limitations of the exam. Targeted ultrasound was performed of the areas of the palpable lumps in bilateral breasts pointed ou t by the patient. At the site of 2 palpable lumps in the right breast, in the right breast at 9:30, 6 cm from the nipple, as well as right breast at 9:00, 3 cm from the nipple, there is sonographical ly normal tissue without evidence of a discrete cystic or solid mass. At the site of another palpab le lump in the left breast at 4:00, 8 cm from the nipple, there is a round circumscribed anechoic ma ss which measures 1.9 x 1.4 cm, consistent with a benign simple cyst. Targeted ultrasound was performed of the other palpable lump pointed out by the patient, which invol ves a large area in the left superior breast from approximately 11 to 1:00. Expected lactational ch anges are seen in this region, with normal-appearing tissue comprising the majority of the palpable lump. Far posteriorly in the left breast at approximately 11:00, 5 cm from the nipple, there is an oval hypoechoic 3.1 x 1.2 x 2.8 cm mass, which is difficult to visualize due to the far posterior lo cation but has the appearance of a fluid collection/cyst. Abutting this mass anteriorly is another similar-fluid collection which measures 8 x 14 mm. This likely corresponds with the possible obscur ed mass seen mammographically and likely represents a cyst/fluid collection. IMPRESSION: ACR-BI-RADS CATEGORY 3: PROBABLY BENIGN, TARGETED ULTRASOUND ACR-BI-RADS CATEGORY 3: MA OBABLY BENIGN 1. No mammographic or sonographic abnormality at the site of the palpable right breast lumps. No m ammographic evidence of malignancy in the right breast. 2. Benign 1.9 cm cyst at the site of the palpable lump in the left breast at 4:00. 3. The majority of the large palpable lump in the left superior breast is composed of normal-appear ing lactating breast tissue on ultrasound. There is a hypoechoic 3.1 cm mass in the left 11:00 post erior breast, which is difficult to visualize on ultrasound but likely represents a cyst/fluid colle ction. If there is any clinical concern for infection or if it is felt that symptom relief could be achieved with aspiration, consider attempted ultrasound-guided aspiration of the collection. If as piration is not performed, recommend short interval follow-up left breast ultrasound and possible le ft breast diagnostic mammograms in 3 months to reevaluate. The patient has been verbally notified of the results. Approximately 10% of breast cancers are not detected with mammography. A negative mammographic repor t should not delay biopsy if a clinically suggestive mass is present. Payal Camara M.D. ah/:09/19/2016 12:08:57 Personal Counselor: Litzy TRENT(R)(M), [facility] letter sent: Follow Up Recommended 3 BI-RADS Code: ACR-BI-RADS Category 3: Probably Benign Ultrasound BI-RADS: ACR-BI-RADS Category 3: P robably Benign
== END | disposition home or self-care (01) ==
LOC: C.MAMM 08:58
PROVIDERS: ATTEND Physician Assistant
DX: N63 Unspecified lump in breast (principal)

== ENCOUNTER → 2017-04-25 | Outpatient (CLI) | payer OTHER ==
[2017-04-25 17:47] LABS: THYROID STIMULATING HORMONE 7.31 uIu/ml (0.300-4.500)
== END | disposition home or self-care (01) ==
LOC: C.LAB1850 15:25
PROVIDERS: ATTEND Physician Assistant
DX: O90.5 Postpartum thyroiditis (principal)

== ENCOUNTER → 2017-06-23 | Outpatient (CLI) | payer OTHER | END | disposition home or self-care (01) | LOC: C.LAB1850 09:14 | PROVIDERS: ATTEND Physician Assistant | DX: O90.5 Postpartum thyroiditis (principal) ==